=== PATIENT | male | born 2000 | race Caucasian/White ===

== ENCOUNTER 2025-06-13 15:29 | Emergency (ER) | payer OTHER, SELFPAY ==
--- NOTE | ~2025-06-13 | XR_ITS ---
EXAMINATION: XR knee LT 3V, 06/13/2025 15:55 CDT HISTORY: ANT PAIN AFTER TWISTING INJURY COMPARISON: No comparisons available. Findings: No acute fracture or malalignment. No significant degenerative changes. Soft tissues unremarkable. Impression: No acute fracture or malalignment. Reviewed, dictated and finalized at location P. Impression: No acute fracture or malalignment.
[2025-06-13 15:40] VITALS: BP 135/67; PULSE 67; RESP 16; TEMP 36.6; O2SAT 99
--- NOTE | 2025-06-13 16:01 | ED_ITS ---
HPI - Extremity Injury (Lower) General Chief Complaint: Extremity Injury, Lower Stated Complaint: Left Knee Injury Time Seen by Provider: 06/13/25 16:02 Source: patient Mode of arrival: ambulatory Limitations: no limitations History of Present Illness HPI Narrative: 24-year-old male presents with pain to left knee. Patient states no injury. Pain started yesterday after dragging deer behind him to his car after hunting. States deer weighed approximately 100 lb. approximately 1 hour after pulling deer patient stood up and states left knee felt unstable. pain just able kneecap. Arrived wearing Ross wrap. Ambulatory with limp. No pain with walking. Pain worsened with squatting. All systems reviewed and negative except as noted above. Related Data Home Medications ?Medication ?Instructions ?Recorded ?Confirmed ?Last Taken ?Type No Home Medications 06/13/25 06/13/25 U nknown History Allergies Allergy/AdvReac Type Severity Reaction Status Date / Time No Known Allergies Allergy Verified 06/13/25 15:51 PMFSH Comments At time of signature, agree with nursing past medical, surgical, social and family history. There is no relevant family history pertinent to the presenting complaint. Exam Narrative: GENERAL: This is a well-nourished, well-developed patient, in no apparent distress. HEAD: normocephalic, atraumatic. EYES: PERRL. Sclera clear/white. Vision is grossly intact. EARS: External ears normal NOSE: External nose normal NECK: Neck supple, non-tender without lymphadenopathy, masses or thyromegaly. CARDIOVASCULAR: Regular rate and rhythm without murmurs, gallops, or rubs. RESPIRATORY: Clear to auscultation. Breath sounds equal bilaterally. No wheezes, rales, or rhonchi. SKIN: warm, Dry, intact with no suspicious lesions or rash, good texture and turgor. NEURO: awake, alert, and oriented to person, place and time. There were no obvious focal neurologic abnormalities. EXTREMITIES:no tenderness on palpation. negative anterior or posterior drawer testing. no significant swelling noted. Course Course Level of Care: Express Care Visit Vital Signs Vital signs: Vital Signs Temperature 36.6 C 06/13/25 15:40 Pulse Rate 67 06/13/25 15:40 Respiratory Rate 16 06/13/25 15:40 Blood Pressure 135/67 06/13/25 15:40 Pulse Oximetry 99 06/13/25 15:40 Oxygen Delivery Room Air 06/13/25 15:40 Temperature 36.6 C 06/13/25 15:40 Pulse Rate 67 06/13/25 15:40 Respiratory Rate 16 06/13/25 15:40 Blood Pressure 135/67 06/13/25 15:40 Pulse Oximetry 99 06/13/25 15:40 Oxygen Delivery Room Air 06/13/25 15:40 Reviewed MDM - Extremity Injury (Lower) MDM Narrative Medical decision making narrative: x-ray of left knee is normal. Patient referred to Orthopedics for follow-up if pain is not improving in the next 3-4 weeks. Recommend rest, ice, ibuprofen. Imaging Data My impression: Agree with radiologist Radiologist's impression: EXAMINATION: XR knee LT 3V, 06/13/2025 15:55 CDT HISTORY: ANT PAIN AFTER TWISTING INJURY COMPARISON: No comparisons available. Findings: No acute fracture or malalignment. No significant degenerative changes. Soft tissues unremarkable. Impression: No acute fracture or malalignment. Discharge Plan Discharge Clinical Impression: Muscle strain of left knee Qualifiers: Encounter type: initial encounter Qualified Code(s): S86.912A - Strain of unspecified muscle(s) and tendon(s) at lower leg level, left leg, initial encounter Patient Disposition: Home Condition: Stable Instructions: Knee Pain (ED) Additional Instructions: the x-ray of your left knee was normal. Take ibuprofen every 6-8 hours as needed for pain. Apply ice as needed for pain. Elevate when at rest. Follow-up with your rehabilitation specialist if pain is not improving in the next 3-4 weeks. Patient Language: Ecuadorean Prescriptions: No Action No Home Medications Follow-up/Referrals: Jigar Fajardo MD [Physician, Family Practice] Referral Note: Establish care with a primary care physician Deshawn Martinez MD [Physician, Orthopedics] Referral Note: follow-up with rehabilitation specialist if left knee pain is not improving Stand Alone Forms: Work/School Release IP Time of Disposition: 16:12
== END 2025-06-13 16:16 | disposition home or self-care (01) ==
PROVIDERS: Emergency Provider Nurse Practitioner Family
DX: S86.912A Strain of unspecified muscle(s) and tendon(s) at lower leg level, left leg, initial encounter (principal); X50.0XXA Overexertion from strenuous movement or load, initial encounter
CPT/HCPCS: 73562; 99213; G0463